=== PATIENT | female | born 1970 | race Caucasian/White ===

== ENCOUNTER → 2020-02-26 14:56 | Outpatient (BNVA) | payer OTHER, SELFPAY | PROVIDERS: PCP Hospitalist; Visit Provider Advanced Practice Midwife | DX: Z76.89 Persons encountering health services in other specified circumstances (principal) ==

== ENCOUNTER 2021-08-12 10:39 | Outpatient (REF) | payer OTHER, SELFPAY ==
[2021-08-15 14:46] LABS: HPV mRNA E6/E7 rflx Not Detected (Not Detected)
== END 2021-08-12 10:40 | disposition home or self-care (01) ==
LOC: HO.LAB 10:39
PROVIDERS: Visit Provider Advanced Practice Midwife
DX: Z01.419 Encounter for gynecological examination (general) (routine) without abnormal findings (principal); Z11.51 Encounter for screening for human papillomavirus (HPV)
CPT/HCPCS: 87624; 88142

== ENCOUNTER 2021-09-02 15:36 | Outpatient (REF) | payer OTHER, SELFPAY ==
--- NOTE | ~2021-09-02 | MM_ITS ---
EXAMINATION: MM SCREENING DIGITAL BREAST TOMOSYNTHESIS, BILATERAL CLINICAL INFORMATION: Screening. Asymptomatic. The lifetime risk of breast cancer based on the Tyrer-Cuzick Model is 10%. COMPARISON: Mammography: 01/23/2019, 02/18/2016, 02/12/2016, 09/27/2013 TECHNIQUE: Digital breast tomosynthesis is performed in both the craniocaudal and mediolateral oblique views along with computer-aided detection (CAD). Synthesized 2D images are generated from the tomosynthesis. Additional left MLO view is provided. FINDINGS: There are scattered areas of fibroglandular density (ACR BI-RADS breast composition Category b). There are no significant masses, abnormal calcifications, or other abnormalities. There are scattered shifting fibroglandular parenchymal densities overall similar to prior studies. No developing density or architectural abnormality. No significant changes. MM/MM tomosynthesis screening BI IMPRESSION: No mammographic evidence of malignancy. ASSESSMENT: BI-RADS 1: Negative RECOMMENDATION: Routine annual mammography screening. This patient's information was entered into a reminder system with a target due date for their next mammogram.
== END 2021-09-02 15:37 | disposition home or self-care (01) ==
LOC: HO.MAMMO 15:36
PROVIDERS: PCP Nurse Practitioner Family; Visit Provider Advanced Practice Midwife
DX: Z12.31 Encounter for screening mammogram for malignant neoplasm of breast (principal)
CPT/HCPCS: 77063; 77067

== ENCOUNTER 2022-12-23 14:33 | Outpatient (AMB) | payer OTHER, SELFPAY ==
--- NOTE | 2022-12-23 14:37 | A.OFFVIS_ITS ---
Intake Vital Signs 12/23/22 14:39 Height 5 ft 8 in Weight 208 lb BMI 31.6 BP 120/72 Intake Visit Reasons: Annual Intake Note: The patient agreed to use of a medical records field technician during this encounter. Scribed for AKILAH Del Angel by Kristin Chapman medical records field technician, on 12/23/2022 at 2:48 pm EST. Information Interpreted: non-clinical & clinical Allergies amoxicillin Allergy (Unknown, Verified 12/23/22 14:46) rash bacitracin [Triple Antibiotic] Allergy (Unknown, Verified 12/23/22 14:46) rash neomycin [Triple Antibiotic] Allergy (Unknown, Verified 12/23/22 14:46) rash penicillin V Allergy (Unknown, Verified 12/23/22 14:46) rash polymyxin B [Triple Antibiotic] Allergy (Unknown, Verified 12/23/22 14:46) rash Is last menstrual period known: No Post menopausal: Yes Patient : No HPI HPI Comments History of Present Illness Details She is a postmenopausal woman presenting for annual exam. Patient admits she tries to eat a healthy diet including Calcium and Vitamin D. She stays active with exercise. Reports occasional hot flashes. Currently sexually active. Denies vaginal itching and irritation. STD screening offered; she declines. Denies family hx of breast and colon cancer. Last pap smear 08/12/21. Last mammogram 09/02/21. UTD on colonoscopy. PFSH Surgical History History of loop electrical excision procedure (LEEP) Hx of section Hx of dilation and curettage Family History Mother Ovarian cancer, Onset Age: 60 Sister Cancer of kidney Social History Alcohol intake: current Alcohol intake frequency: a few times a week Sexual orientation: Straight/Heterosexual Gender identity: Female Female Reproductive History Menstrual Age of Menarche: 8 Total pregnancies: 4 Number of Living Children: 3 Ab spontaneous: 1 Date of last pap smear: 08/12/21 (negative) History of abnormal pap smear: Yes (7/0 HGSIL, 11/25 colpo CIN1, 01/09 ASCUS) Date of Mammogram: 09/02/21 Physical Exam Vital Signs: Last Vital Signs BP 120/72 12/23/22 14:39 BMI result Body Mass Index 31.6 Const General: cooperative, healthy appearing, no acute distress, well developed and alert Orientation/consciousness: patient oriented x3 HEENT Head: Yes normal to inspection Eyes General: appearance normal, both eyes and all related structures Neck Neck: Yes normal visual inspection Thyroid: Thyroid normal Chest Chest palpation & inspection: normal inspection of the chest Breast/axilla inspection: normal inspection of the breasts (no puckering, dimpling, peau de orange, retraction, discharge, masses) Breast/axilla palpation: normal palpation of the breasts Resp Effort & Inspection: normal respiratory effort GI Inspection: Yes normal to inspection Palpation (GI): Soft to palpation (to palpation) Rectal Exam - Female: deferred General: Yes bladder normal to inspection External Female Exam: normal external appearance and normal appearance of the urethra Speculum Exam - Vagina: normal appearance of the vagina, normal palpation and normal vaginal discharge Speculum Exam - Cervix: normal appearance of the cervix and normal palpation Bimanual exam- vagina & uterus: normal palpation and normal palpation Bimanual Exam- Adnexa, other: normal adnexae and no masses Skin General skin exam: no rashes or lesions noted Neuro General: patient oriented x3 Cognition (Neuro): normal cognition Extrem General: Yes normal to inspection Psych Attitude: cooperative Thought process: Normal thought process present Assessment & Plan Assessment & Plan (1) Encounter for annual routine gynecological examination: Code(s): Z01.419 - Encounter for gynecological examination (general) (routine) without abnormal findings Plan: Discussed: Current recommendations for pap smears per ASCCP guidelines. Breast awareness and periodic self breast exams. Encouraged yearly mammograms. Maintaining a healthy lifestyle including a well balanced diet including Calcium and Vitamin D and routine exercise. Encouraged patient to sign up for patient portal. Contact office with any PMB. All of her questions and concerns were addressed to the best of my ability. RTO in 1 year for AG. (2) Hot flashes: Code(s): R23.2 - Flushing Plan: Counseled on hot flashes. Avoid spicy foods and alcohol. Wear light, layered clothing. Stay well hydrated. Orders: Orders MM tomosynthesis screening BI Today Z12.31 - Encounter for screening mammogram for malignant neoplasm of breast Coding Level of Care Code Est Pt Prev Care 40-64y(17374) Diagnoses Encounter for annual routine gynecological examination Z01.419 Hot flashes R23.2
[2022-12-23 14:39] VITALS: BP 120/72; BMI 31.6
== END 2022-12-23 15:16 | disposition home or self-care (01) ==
LOC: HO.HWS 14:33
PROVIDERS: PCP Nurse Practitioner Family; Visit Provider Advanced Practice Midwife
DX: Z01.419 Encounter for gynecological examination (general) (routine) without abnormal findings (principal); R23.2 Flushing
CPT/HCPCS: 99396

== ENCOUNTER → 2022-12-23 14:33 | Outpatient (BNVA) | payer OTHER, SELFPAY | PROVIDERS: PCP Nurse Practitioner Family; Visit Provider Advanced Practice Midwife ==

== ENCOUNTER → 2023-02-02 15:45 | Outpatient (BNV) | payer OTHER, SELFPAY | PROVIDERS: PCP Nurse Practitioner Family; Visit Provider Radiology Diagnostic Radiology | DX: Z12.31 Encounter for screening mammogram for malignant neoplasm of breast (principal) | CPT/HCPCS: 77063; 77067 ==

== ENCOUNTER 2023-02-02 15:46 | Outpatient (REF) | payer OTHER, SELFPAY | END 2023-02-02 15:47 | disposition home or self-care (01) | LOC: HO.MAMMO 15:46 | PROVIDERS: PCP Nurse Practitioner Family; Visit Provider Advanced Practice Midwife | DX: Z12.31 Encounter for screening mammogram for malignant neoplasm of breast (principal) | CPT/HCPCS: 77063; 77067 ==

== ENCOUNTER 2024-01-11 13:58 | Outpatient (AMB) | payer OTHER, SELFPAY ==
[2024-01-11 14:05] VITALS: BP 122/80; BMI 29.8
--- NOTE | 2024-01-11 14:05 | MHC.OFFVIS ---
Vital Signs 01/11/24 14:05 Height 5 ft 8 in Weight 196 lb BMI 29.8 BP 122/80 Intake Visit Reasons: COUNTER FORMER annual exam/Per Rey Conservation Worker: Conservation Worker Present (Randi) Allergies amoxicillin Allergy (Unknown, Verified 01/11/24 14:06) rash bacitracin [Triple Antibiotic] Allergy (Unknown, Verified 01/11/24 14:06) rash neomycin [Triple Antibiotic] Allergy (Unknown, Verified 01/11/24 14:06) rash penicillin V Allergy (Unknown, Verified 01/11/24 14:06) rash polymyxin B [Triple Antibiotic] Allergy (Unknown, Verified 01/11/24 14:06) rash Post menopausal: Yes HPI Comments Details: 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 She is doing well with no concerns. Attempting to eat a healthy diet with calcium and vitamin D and stays active with exercise. Currently sexually active w/. Denies any vaginal dryness or irritation. STI testing offered; she accepts. Last pap smear; 2021, negative. Last mammogram; 2022. Colonoscopy is not UTD. Denies any family history of breast or colon cancer. FH ovarian cancer-mother. [facility] Surgical History Hx of dilation and curettage Hx of section History of loop electrical excision procedure (LEEP) Family History (Updated 01/11/24 @ 14:21 by Yolis Calloway CNM) Mother Ovarian cancer, Onset Age: 60 Sister Cancer of kidney Father Diabetes CHF (congestive heart failure) CVD (cardiovascular disease) Renal disease Social History Alcohol intake: current Alcohol intake frequency: a few times a week Patient Tobacco Use Status: Never used Tobacco Sexual orientation: Straight/Heterosexual Gender identity: Female Female Reproductive History Menstrual Age of Menarche: 8 Total pregnancies: 4 Full term: 3 Number of Living Children: 3 Ab spontaneous: 1 Date of last pap smear: 08/12/21 (neg pap and hpv) History of abnormal pap smear: Yes (10/25 hgsil 11/25 colpo cin1 12/26 leep cin1-2 01/09 ascus) Date of Mammogram: 02/02/23 (Birad 1) Review of Systems Const All systems reviewed & are unremarkable except as noted in HPI and below Reports as per HPI Eyes Reports no additional complaints ENT Reports no additional complaints Card Reports no additional complaints Resp Reports no additional complaints GI Reports as per HPI and Reports no additional complaints Reports as per HPI Musc Reports no additional complaints Skin/Breast Reports as per HPI Neuro Reports no additional complaints Psych Reports no additional complaints Endo Reports no additional complaints Donald/Lymph Reports no additional complaints Aller/Immun Reports no additional complaints Physical Exam Vital Signs: BMI result Body Mass Index 29.8 Const General: cooperative, healthy appearing, no acute distress, well developed and alert Orientation/consciousness: patient oriented x3 HEENT Head: Yes normal to inspection Eyes General: appearance normal, both eyes and all related structures Neck Neck: Yes normal visual inspection Thyroid: Thyroid normal Chest Chest palpation & inspection: normal inspection of the chest and other (no puckering, dimpling, peau de orange, retraction, discharge, masses) Breast/axilla inspection: normal inspection of the breasts Breast/axilla palpation: normal palpation of the breasts Resp Effort & Inspection: normal respiratory effort GI Inspection: Yes normal to inspection Palpation (GI): Soft to palpation Rectal Exam - Female: deferred General: Yes bladder normal to palpation External Female Exam: normal external appearance and normal appearance of the urethra Speculum Exam - Vagina: normal appearance of the vagina, normal palpation, normal vaginal discharge and vagina atrophic Speculum Exam - Cervix: normal appearance of the cervix and normal palpation Bimanual exam- vagina & uterus: normal bimanual exam, normal palpation, uterine size normal, bladder normal to palpation, normal palpation and non-tender Bimanual Exam- Adnexa, other: no masses Skin General skin exam: no rashes or lesions noted Rashes: no rashes Neuro General: patient oriented x3 Cognition (Neuro): normal cognition Extrem General: Yes normal to inspection Psych Attitude: cooperative Thought process: Normal thought process present Assessment & Plan Assessment & Plan (1) Encounter for well woman exam with routine gynecological exam: Code(s): Z01.419 - Encounter for gynecological examination (general) (routine) without abnormal findings Category: Medical Plan Discussed: Current recommendations for pap smears per ASCCP guidelines. Reviewed guidelines recommended to repeat Pap next year when due. Breast awareness, periodic self breast exams and yearly mammogram. Mammogram ordered. Maintain a healthy lifestyle, well balanced diet including Calcium 1,200 mg and Vitamin D 600 IU daily, and routine exercise. Contact the office with any postmenopausal bleeding. Patient verbalizes understanding and agrees to the plan of care. She was given opportunity to ask questions and all questions were answered to the best of my ability. 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 This note is constructed using voice recognition software. While every effort has been made to ensure accuracy, outpatient interviewing clerk errors may have been included. Orders: Orders MM tomosynthesis screening BI Today Z12.31 - Encounter for screening mammogram for malignant neoplasm of breast Coding Level of Care Code Est Pt Prev Care 40-64y(67842) Diagnoses Encounter for well woman exam with routine gynecological exam Z01.419
== END 2024-01-11 14:51 | disposition home or self-care (01) ==
PROVIDERS: PCP Nurse Practitioner Family; Visit Provider Advanced Practice Midwife
DX: Z01.419 Encounter for gynecological examination (general) (routine) without abnormal findings (principal)
CPT/HCPCS: 99396

== ENCOUNTER → 2024-01-11 13:58 | Outpatient (BNVA) | payer OTHER, SELFPAY | PROVIDERS: PCP Nurse Practitioner Family; Visit Provider Advanced Practice Midwife ==

== ENCOUNTER → 2024-02-08 13:45 | Outpatient (BNV) | payer OTHER, SELFPAY | PROVIDERS: Visit Provider Internal Medicine | DX: Z12.31 Encounter for screening mammogram for malignant neoplasm of breast (principal) | CPT/HCPCS: 77063; 77067 ==

== ENCOUNTER 2024-02-08 13:46 | Outpatient (REF) | payer OTHER, SELFPAY ==
--- NOTE | ~2024-02-08 | MM_ITS ---
EXAMINATION: MM SCREENING DIGITAL BREAST TOMOSYNTHESIS, BILATERAL CLINICAL INFORMATION: Screening. Asymptomatic. COMPARISON: Mammography: Comparison is made with available priors TECHNIQUE: Digital breast mammography with tomosynthesis is performed in both the craniocaudal and mediolateral oblique views along with computer-aided detection (CAD). FINDINGS: There are scattered areas of fibroglandular density (ACR BI-RADS breast composition Category b). There are no significant masses, abnormal calcifications, or other abnormalities. MM/MM tomosynthesis screening BI IMPRESSION: No mammographic evidence of malignancy. ASSESSMENT: BI-RADS BI-RADS 1 - Negative RECOMMENDATION: Routine annual mammography screening. 1 year F/U This examination should not preclude the clinical evaluation of a suspicious palpable abnormality. This patient's information was entered into a reminder system with a target due date for their next mammogram. Electronically signed by: Brunilda Hopkins DO 02/21/2024 05:22 PM EDT
== END 2024-02-08 13:47 | disposition home or self-care (01) ==
LOC: HO.MAMMO 13:46
PROVIDERS: Visit Provider Advanced Practice Midwife
DX: Z12.31 Encounter for screening mammogram for malignant neoplasm of breast (principal)
CPT/HCPCS: 77063; 77067

== ENCOUNTER 2025-01-17 14:23 | Outpatient (REF) | payer OTHER, SELFPAY | END 2025-01-17 14:24 | disposition home or self-care (01) | LOC: HO.LNP 14:23 | PROVIDERS: Visit Provider Advanced Practice Midwife | DX: Z01.419 Encounter for gynecological examination (general) (routine) without abnormal findings (principal); Z11.51 Encounter for screening for human papillomavirus (HPV); Z12.31 Encounter for screening mammogram for malignant neoplasm of breast; N39.41 Urge incontinence | CPT/HCPCS: 87626; 88175 ==

== ENCOUNTER 2025-01-17 14:23 | Outpatient (AMB) | payer OTHER, SELFPAY ==
--- NOTE | 2025-01-17 14:33 | A.OFFVIS_ITS ---
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 no concern Property Clerk Required: No Information Interpreted: non-clinical & clinical Partition Assembly Machine Operator: Partition Assembly Machine Operator Present (madhu) Accompanied by: Self / Same As Patient Allergies amoxicillin Allergy (Unknown, Verified 01/11/24 14:06) rash bacitracin (Triple Antibiotic) Allergy (Unknown, Verified 01/11/24 14:06) rash neomycin (Triple Antibiotic) Allergy (Unknown, Verified 01/11/24 14:06) rash penicillin V Allergy (Unknown, Verified 01/11/24 14:06) rash polymyxin B (Triple Antibiotic) Allergy (Unknown, Verified 01/11/24 14:06) rash Medication List - Last Reconciled 01/17/25 by Eva Leger LPN cetirizine (Zyrtec) 10 mg PO DAILY PRN multivitamin 1 tab PO DAILY Is last menstrual period known: No Do you need a note to return to daycare/school/sports/work: No HPI Comments Details: Patient is a 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 Bridal Gown Fitter concerns: some stress, urge incontinence over the last year. Currently sexually active. Denies any vaginal dryness or irritation. STI testing offered; she declined. Attempting to eat a healthy diet with calcium and vitamin D and stays active with exercise. Last pap smear; 2021, negative. History of LEEP 2001. Last mammogram; 2023. Colonoscopy is not UTD due to unable to obtain an appt. on wait list for nearly a year. Family history of ovarian cancer. 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 Current occupational exposures/hazards: No Sexual orientation: Straight/Heterosexual Gender identity: Female Female Reproductive History Menstrual Age of Menarche: 8 Total pregnancies: 4 Number of Living Children: 3 Ab induced: 1 Date of last pap smear: 08/12/21 History of abnormal pap smear: Yes History of STI: No Date of Mammogram: 02/08/24 History of abnormal mammogram: No Review of Systems Const All systems reviewed & are unremarkable except as noted in HPI and below Reports as per HPI Eyes Reports no additional complaints ENT Reports no additional complaints Card Reports no additional complaints Resp Reports no additional complaints GI Reports as per HPI and Reports no additional complaints Reports as per HPI Musc Reports no additional complaints Skin/Breast Reports as per HPI Neuro Reports no additional complaints Psych Reports no additional complaints Endo Reports no additional complaints Donald/Lymph Reports no additional complaints Aller/Immun Reports no additional complaints Physical Exam Vital Signs: Last Vital Signs BP 136/78 01/17/25 14:43 BMI result Body Mass Index 31.9 Const General: cooperative, healthy appearing, no acute distress, well developed and alert Orientation/consciousness: patient oriented x3 HEENT Head: Yes normal to inspection Eyes General: appearance normal, both eyes and all related structures Neck Neck: Yes normal visual inspection Thyroid: Thyroid normal Chest Chest palpation & inspection: normal inspection of the chest and other (no puckering, dimpling, peau de orange, retraction, discharge, masses) Breast/axilla inspection: normal inspection of the breasts Breast/axilla palpation: normal palpation of the breasts Resp Effort & Inspection: normal respiratory effort GI Inspection: Yes normal to inspection Palpation (GI): Soft to palpation Rectal Exam - Female: deferred General: Yes bladder normal to palpation External Female Exam: normal external appearance and normal appearance of the urethra Speculum Exam - Vagina: normal appearance of the vagina, normal palpation, normal vaginal discharge and vagina atrophic Speculum Exam - Cervix: normal appearance of the cervix, normal palpation and Ot her cervical findings present (Post LEEP appearance) Bimanual exam- vagina & uterus: normal bimanual exam, normal palpation, uterine size normal, bladder normal to palpation, normal palpation and non-tender Bimanual Exam- Adnexa, other: no masses Skin General skin exam: no rashes or lesions noted Rashes: no rashes Neuro General: patient oriented x3 Cognition (Neuro): normal cognition Extrem General: Yes normal to inspection Psych Attitude: cooperative Thought process: Normal thought process present Assessment & Plan Assessment & Plan (1) Encounter for annual routine gynecological examination: Code(s): Z01. - Encounter for gynecological examination (general) (routine) without abnormal findings Category: Medical (2) Urge incontinence: Code(s): N39.41 - Urge incontinence Plan: Discussed: Urge incontinence discuss, benefits of estrogen localized, pelvic floor exercise, possible referral to physical therapy, review of menopause website and information resources reviewed. Follow up PRN for consult. Urology referral if indicated. The patient expressed understanding and agreement with the plan of care. All of her questions and concerns were addressed to the best of my ability. Total time I personally spent on visit and management today: ?15 minutes. Time spent included review of pertinent office notes in the electronic health record; review of laboratory and imaging results; review of personal family me dical history; performing physical exam; discussing diagnosis and plan of care with the patient; documenting the encounter in the EMR.Urge incontinence discuss, benefits of estrogen localized, pelvic floor exercise, possible referral to physical therapy, review of menopause website and information resources reviewed. Follow up PRN for consult. Plan Discussed: Current recommendations for pap smears per ASCCP guidelines. Breast awareness, periodic self breast exams and yearly mammogram. Maintain a healthy lifestyle, well balanced diet including Calcium 1,200 mg and Vitamin D 600 IU daily, and routine exercise. Contact the office with any postmenopausal bleeding. Patient verbalizes understanding and agrees to the plan of care. She was given opportunity to ask questions and all questions were answered to the best of my ability. RTO in 1 year for annual sericulturist exam. This note is constructed using voice recognition software. While every effort has been made to ensure accuracy, deputy felony clerk errors may have been included. Orders: Orders MM tomosynthesis screening BI Today Z12.31 - Encounter for screening mammogram for malignant neoplasm of breast Pap Smear Today Z - Encounter for gynecological examination (general) (routine) without abnormal findings HPV High risk Today Z00.00 - Encounter for general adult medical examination without abnormal findings Coding Level of Care Code Est Pt Level 2 (10651) New Pt Prev Care 40-64y(73686) Diagnoses Encounter for annual routine gynecological examination Z Urge incontinence N39.41
[2025-01-17 14:43] VITALS: BP 136/78; BMI 31.9
== END 2025-01-18 08:17 | disposition home or self-care (01) ==
LOC: HO.HWS 14:23
PROVIDERS: Visit Provider Advanced Practice Midwife
DX: Z01.419 Encounter for gynecological examination (general) (routine) without abnormal findings (principal); N39.41 Urge incontinence
CPT/HCPCS: 99212; 99396; 99459

== ENCOUNTER 2025-04-04 14:52 | Outpatient (REF) | payer OTHER, SELFPAY | END 2025-04-04 14:53 | disposition home or self-care (01) | LOC: HO.MAMMO 14:52 | PROVIDERS: PCP Student in an Organized Health Care Education/Training Program; Visit Provider Advanced Practice Midwife | DX: Z12.31 Encounter for screening mammogram for malignant neoplasm of breast (principal) | CPT/HCPCS: 77063; 77067 ==

== ENCOUNTER → 2025-04-04 14:55 | Outpatient (BNV) | payer OTHER, SELFPAY | PROVIDERS: PCP Student in an Organized Health Care Education/Training Program; Visit Provider Internal Medicine | DX: Z12.31 Encounter for screening mammogram for malignant neoplasm of breast (principal) | CPT/HCPCS: 77063; 77067 ==